=== PATIENT | male | born 1995 | race Caucasian/White ===

== ENCOUNTER 2021-05-19 18:39 | Emergency (ER) | payer OTHER ==
[2021-05-19] MEDS ORDERED: MEDROL 4MG DOSEP4 MG PO (22:28)
[2021-05-19] MEDS ORDERED: CYCLOBENZAPRINE10 MG PO (22:28)
== END 2021-05-19 22:35 | disposition home or self-care (01) ==
LOC: FER 18:39
DX: S13.4XXA Sprain of ligaments of cervical spine, initial encounter (principal); S23.3XXA Sprain of ligaments of thoracic spine, initial encounter; S33.5XXA Sprain of ligaments of lumbar spine, initial encounter; V49.40XA Driver injured in collision with unspecified motor vehicles in traffic accident, initial encounter
CPT/HCPCS: 72125; 72128; 72131

== ENCOUNTER 2021-10-05 17:26 | Emergency (ER) | payer OTHER ==
[~2021-10-05 17:26] MED LIST: CYCLOBENZAPRINE10 MG PO; MEDROL 4MG DOSEP4 MG PO
[2021-10-05] MEDS ORDERED: CEPHALEXIN500 MG PO ×2 (18:28)
== END 2021-10-05 18:38 | disposition home or self-care (01) ==
LOC: FER 17:26
DX: S91.114A Laceration without foreign body of right lesser toe(s) without damage to nail, initial encounter (principal); W45.8XXA Other foreign body or object entering through skin, initial encounter; Y92.009 Unspecified place in unspecified non-institutional (private) residence as the place of occurrence of the external cause